=== PATIENT | female | born 1960 | race Caucasian/White ===

== ENCOUNTER 2016-11-29 10:05 | Emergency (ER) | payer OTHER ==
[~2016-11-29] VITALS: Ht 157.5 cm; Wt 49.9 kg
[~2016-11-29 10:05] MED LIST: AMPHETAMINE SAL30 MG PO; ATIVAN1 MG PO; FLEXERIL10 MG PO; MAGNESIUM OXID400 MG PO; METHYLCOBALAMIN1 TA1 PO; MOTRIN800 MG PO; PERCOCET 325 MG1 TA2 PO; THIAMINE HCL100 MG PO; [UNRECOGNIZED DRUG - OTHER] PO
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
[2016-11-29 12:48] VITALS: BP 132/99
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
== END 2016-11-29 13:01 ==
LOC: ERH 10:05
DX: S09.90XA Unspecified injury of head, initial encounter (principal); M25.511 Pain in right shoulder; M79.642 Pain in left hand; M25.551 Pain in right hip; R07.89 Other chest pain; Y04.8XXA Assault by other bodily force, initial encounter
CPT/HCPCS: 71100-LT; 72170; 73030-RT; 73120-LT

== ENCOUNTER 2016-12-01 17:30 | Emergency (ER) | payer OTHER ==
[~2016-12-01] VITALS: Ht 157.5 cm; Wt 49.9 kg
[2016-12-01 17:45] VITALS: BP 139/93
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
[2016-12-01] MEDS ORDERED: MECLIZINE HCL25 MG PO (18:54)
[2016-12-01] MEDS ORDERED: ZOFRAN ODT4 M1 SL (18:54)
== END 2016-12-01 19:06 ==
LOC: ERH 17:30
DX: F07.81 Postconcussional syndrome (principal)

== ENCOUNTER 2016-12-12 10:24 | Emergency (ER) | payer OTHER ==
[~2016-12-12] VITALS: Ht 157.5 cm; Wt 49.9 kg
[~2016-12-12 10:24] MED LIST changes: +MECLIZINE HCL25 MG PO; +ZOFRAN ODT4 M1 SL
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
[2016-12-12] MEDS ORDERED: REGLAN10 M1 PO (11:57)
[2016-12-12] MEDS ORDERED: FIORICET 50-301 EACH PO (11:57)
[2016-12-12 12:07] VITALS: BP 144/85
== END 2016-12-12 12:16 ==
LOC: ERH 10:24
DX: F07.81 Postconcussional syndrome (principal)

== ENCOUNTER → 2018-02-05 | Day surgery (SDC) | payer OTHER ==
[~2018-02-05] VITALS: Ht 157.5 cm; Wt 54.4 kg
[~2018-02-05] MED LIST changes: +DEXTROAMP-AMPHE30 MG PO; +FIORICET 50-301 EACH PO; +IBUPROFEN800 M1 PO; +PERCOCET 5-3251 EACH PO; +PYRIDIUM100 M1 PO; +REGLAN10 M1 PO; +TOPAMAX50 M1 PO
--- NOTE | 2018-02-05 10:17 | Operative Report ---
Operative/Inv Procedure Report Surgery Date: 02/05/18 Name of Procedure: urethral sling. cystoscopy Pre-Operative Diagnosis: stress incontinence Post-Operative Diagnosis: same Estimated Blood Loss: less than 50ml Surgeon/Director Of Strategic Sourcing: Sheila Boudreaux MD Anesthesia: local monitored anesthesi Implants: vaginal mesh Complications: none Condition: stable Operative Indication: stress incontinence Operative/Procedure Note Note: This a 57-year-old female Kristan Marks. She has a history of stress urinary incontinence that is very bothersome. She was given the risks benefits and alternatives of urethral sling which is vaginal mesh. All questions were answered regarding the vaginal mesh and the possible complications. The consent was signed in the holding area. Her on was present as well. Patient was identified in the holding area and brought to the operating room placed on the operating table in the supine position. Timeout was performed. IV antibiotics were infused. SCDs were placed on the lower extremities. She was placed in the dorsolithotomy position. She was shaved and the genitalia region. She was prepped and draped in the standard sterile fashion. Rubi catheter was placed to empty the bladder and then was clamped and placed on the patient's abdomen. Since retractor was placed for better visualization. 1% lidocaine with epinephrine was infiltrated into the anterior vaginal wall beneath the urethra. An incision was made with #15 blade approximately 2 inches in length underneath the urethra. Vaginal flaps are created taking care not to injure the urethra. The Altis Sling kit was then opened and the trochars provided was used to place the sling first in the left obturator fascia followed by the right side. The trochars did not galvan the vaginal fornices. The sling was tightened using the Prolene suture. Was in a nice tension-free manner with the DeBakey between the urethra and the sling. There was copiously irrigated with bacitracin irrigation. A cystoscopy was performed and the bladder and the urethra globally inspected. There were no abnormalities and the bladder or the urethra. The ureteral orifices were in their normal anatomic position. The bladder was emptied and cystoscope was removed. The Prolene tightening suture was cut. The incision was closed with 3-0 Vicryl running locking every third suture. 2 inch vaginal packing impregnated with bacitracin ointment was placed into the vaginal vault. Sponge and needle count were correct at the end of the case. Patient tolerated procedure well. Findings: No mesh in the urethra, bladder or vaginal fornices.
== END ==
LOC: STS 02:22
DX: N39.3 Stress incontinence (female) (male) (principal); Z87.440 Personal history of urinary (tract) infections; F17.210 Nicotine dependence, cigarettes, uncomplicated
CPT/HCPCS: C1771; J0131; J0690; J1885; J2250

== ENCOUNTER 2018-02-06 20:05 | Emergency (ER) | payer OTHER ==
[~2018-02-06] VITALS: Ht 157.5 cm; Wt 55.8 kg
[~2018-02-06 20:05] MED LIST changes: -PERCOCET 5-3251 EACH PO; -PYRIDIUM100 M1 PO
[2018-02-06] MEDS ORDERED: PYRIDIUM100 M1 PO (21:31)
--- NOTE | 2018-02-06 21:31 | ED GENERAL ADULT ---
History of Present Illness General Chief Complaint: Female Urogenital Problems Stated Complaint: DX UTI, STARTED ANTIBIOTICS TODAY, NOT ANY BETTER Source: patient Exam Limitations: no limitations Vital Signs & Intake/Output Vital Signs & Intake/Output Vital Signs Date Time Temp Pulse Resp B/P B/P Pulse O2 O2 Flow FiO2 Mean Ox Delivery Rate 02/06 2142 98.5 102 18 155/90 97 Room Air Room Air 02/06 2025 98.7 122 18 170/105 98 Room Air Allergies Coded Allergies: No Known Allergies (02/06/18) Reconcile Medications Dextroamphetamine/Amphetamine (Dextroamp-Amphetamin 30 MG Tab) 30 MG TABLET 1 TAB PO BID ADHD (Reported) Ibuprofen 800 MG TABLET 1 TAB PO TID PAIN/INFLAMMATION (Reported) Phenazopyridine HCl (Pyridium) 100 MG TABLET 1 TAB PO TID dysuria Topiramate (Topamax) 50 MG TABLET 1 TAB PO BID MIGRAINES (Reported) Triage Note: PT FROM HOME C/O UTI/ SX YESTERDAY. PT STATES THAT SHE HAD SURGERY YESTERDAY TO GET HER "BLADDER LIFTED" FOR STRESS INCONTINENCE. PT STATES " I BROUGHT MY OWN URNIE FROM HOME FROM THIS MORNING THEN I STARTED TAKING CIPRO I TOOK IT TODAY AT 10 AM WITH NO RELIEF. I ONLY PEED TWICE TODAY AND I HAVE THE URGE TO GO" PTS VSS. Triage Nurses Notes Reviewed? yes Onset: Gradual Duration: hour(s): Timing: constant HPI: 57-year-old female with a history of stress incontinence, EtOH abuse, substance abuse, ADHD presenting with dysuria, urinary frequency, urinary urgency since last night. Patient reports that she had mesh placed to her pelvic floor yesterday by urology to treat her stress incontinence, and then developed her symptoms a few hours later. Called her urologist this morning and was called in a prescription for Cipro. Patient has taken 2 doses of the Cipro and reports that she has not yet had improvement. Presents with her own home urine sample which she obtained prior to initiation of Cipro. Has had mild nausea, no vomiting. Denies fevers or abd pain. No vaginal discharge or odor. (Tammie Swartz) Past History Travel History Traveled to [place] past 21 day No Medical History Any Pertinent Medical History? 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 No (Tammie Swartz) Review of Systems Review of Systems Constitutional: Reports: no symptoms. EENTM: Reports: no symptoms. Respiratory: Reports: no symptoms. Cardiovascular: Reports: no symptoms. GI: Reports: nausea. Denies: abdominal pain, diarrhea, vomiting. Genitourinary: Reports: dysuria, frequency, urgency. Denies: discharge, hematuria. Musculoskeletal: Reports: no symptoms. Skin: Reports: no symptoms. Neurological/Psychological: Reports: no symptoms. Hematologic/Endocrine: Reports: no symptoms. Immunologic/Allergic: Reports: no symptoms. (Tammie Swartz) Physical Exam Physical Exam General Appearance: well developed/nourished, no apparent distress, alert, awake , comfortable Head: atraumatic, normal appearance Eyes: Bilateral: normal appearance. Neck: normal inspection Respiratory: normal breath sounds, lungs clear Cardiovascular: regular rate/rhythm Gastrointestinal: soft, non-tender Back: normal inspection, No CVAT Extremities: normal inspection Neurologic/Psych: awake, alert, oriented x 3, normal gait Skin: intact, normal color, warm/dry Core Measures ACS in differential dx? No CVA/TIA Diagnosis: No Sepsis Present: No Sepsis Focused Exam Completed? No (Tammie Swartz) Progress Differential Diagnoses I considered the following diagnoses in my evaluation of the patient: [UTI versus postop vaginitis/urethritis, low concern for pyelo vs cervicitis vs PID] Plan of Care: Orders Procedure Date/time Status CULTURE,URINE 02/06 2030 Active URINALYSIS 02/06 2030 Complete Laboratory Tests 02/06/182043: Urine Color YEL, Urine Clarity CLEAR, Urine pH 6.5, Ur Specific [place] <= 1.005 , Urine Protein NEG, Urine Ketones NEG, Urine Nitrite NEG, Urine Bilirubin NEG, Urine Urobilinogen 0.2, Ur Leukocyte Esterase NEG, Ur Microscopic SEDIMENT EXAMINED, Urine RBC RARE, Ur Epithelial Cells RARE, Urine Hemoglobin TRACE-LYSED , Urine Glucose NEG Microbiology 02/07 2044 URINE ROUT: Urine Culture - RECD Urine not concerning for infection. Culture sent and pending. Patient likely with postop vaginitis/urethra to us. Given Rx Pyridium for comfort. Will follow up with urology as scheduled for her next postop visit. Given strict return precautions. Initial ED EKG: none (Tammie Swartz) Departure Departure Disposition: HOME OR SELF CARE Condition: Stable Clinical Impression Primary Impression: Dysuria Referrals: Carmen SHANNON,Eugene Singh (PCP/Family) Additional Instructions: Use Pyridium as prescribed. Follow-up with urology urologist for reevaluation. Return to the emergency department for any new or worsening symptoms. Departure Forms: Customer Survey General Discharge Information Prescriptions: Current Visit Scripts Phenazopyridine HCl (Pyridium) 1 TAB PO TID #6 TAB (Tammie Swartz) PA/MANAGER PLUMBING Co-Sign Statement Statement: ED Attending supervision documentation- [] I saw and evaluated the patient. I have also reviewed all the pertinent lab results and diagnostic results. I agree with the findings and the plan of care as documented in the PA's/MANAGER PLUMBING's documentation. [x] I have reviewed the ED Record and agree with the PA's/MANAGER PLUMBING's documentation. [] Additions or exceptions (if any) to the PAs/MANAGER PLUMBING's note and plan are summarized below: [] (Nava SHANNON,Mitch Corrales) Critical Care Note Critical Care Note Critical Care Time: non-applicable (Tammie Swartz)
[2018-02-06 21:42] VITALS: BP 155/90
== END 2018-02-06 21:43 ==
LOC: ERH 20:05
DX: R30.0 Dysuria (principal)
CPT/HCPCS: 81001; 87086; J3101